=== PATIENT | female | born 1945 | race Caucasian/White ===

== ENCOUNTER → 2019-04-20 | Outpatient (CLI) | payer MEDICARE, OTHER ==
--- NOTE | 2019-04-20 12:43 | RAD ---
Right lower extremity venous duplex study 04/20/2019 Clinical History: Right leg swelling. Technique: Using a combination of real time ultrasound imaging and color-flow and pulse Doppler imaging techniques along with graded compression and augmentation, duplex evaluation of the deep venous system of the right lower extremity was performed. Multiple images were obtained. Findings: There is no sonographic evidence of deep venous thrombosis involving the visualized deep venous structures of the right lower extremity. Impression: Negative study. Electronically signed by: Chinmay Ruiz MD (04/20/2019 12:40 PM) [place] [id number]
== END | disposition home or self-care (01) ==
LOC: US 11:16
PROVIDERS: ATTEND Internal Medicine
DX: R60.0 Localized edema (principal)
CPT/HCPCS: 93971